=== PATIENT | female | born 1990 | race Caucasian/White ===

== ENCOUNTER → 2021-09-07 | Outpatient (REF) | payer BC ==
[~2021-09-07] MED LIST: AMBI10TA; AMBIEN; BUSP10TA PO; COLA50CA3 PO; CONC18TA; FEMCON PO; IBUP80TA PO; MACROBID PO; MAPA500T17 PO; MOM30SS PO; PRENTAB74 PO; PROP80CA; SERO1TAB3; SEROQUEL; TOPI25TA2; VENL1TAB35
[2021-09-08 14:02] LABS: PERCENT SATURATION 3.5 % (13.2-45.0)
== END ==
LOC: M LAB REF 12:27
PROVIDERS: ATTEND Internal Medicine
DX: D50.9 Iron deficiency anemia, unspecified (principal)

== ENCOUNTER 2021-09-10 23:55 | Emergency (ER) | payer BC ==
[~2021-09-10] VITALS: Ht 165.1 cm; Wt 103.6 kg
[2021-09-10 23:56] VITALS: BP 131/79
== END 2021-09-11 03:08 | disposition left against medical advice (07) ==
LOC: M ED 23:55
DX: Z53.21 Procedure and treatment not carried out due to patient leaving prior to being seen by health care provider (principal)

== ENCOUNTER → 2021-09-10 | Outpatient (REF) | payer BC | LOC: M LAB REF 12:35 | PROVIDERS: ATTEND Internal Medicine | DX: R10.9 Unspecified abdominal pain (principal); D50.9 Iron deficiency anemia, unspecified ==

== ENCOUNTER → 2021-10-04 | Outpatient (CLI) | payer BC ==
[~2021-10-04] MED LIST changes: +E-Z-GAS II EFFERVESCENT PACKET (SODIUM BICARB./CITRIC ACID/SIMETHICONE) As Ordered ONE; +E-Z-HD 98% w/w 340GM SUSP BTL As Ordered ONE; +E-Z-PAQUE 96% w/w SUSP 176GM BTL As Ordered ONE
== END ==
LOC: M RAD 08:26
PROVIDERS: ATTEND Internal Medicine
DX: R10.13 Epigastric pain (principal); Z98.84 Bariatric surgery status

== ENCOUNTER 2022-02-27 10:59 | Emergency (ER) | payer BC ==
[~2022-02-27] VITALS: Ht 162.6 cm; Wt 92.8 kg
[~2022-02-27 10:59] MED LIST changes: -E-Z-GAS II EFFERVESCENT PACKET (SODIUM BICARB./CITRIC ACID/SIMETHICONE) As Ordered ONE; -E-Z-HD 98% w/w 340GM SUSP BTL As Ordered ONE; -E-Z-PAQUE 96% w/w SUSP 176GM BTL As Ordered ONE
[2022-02-27 11:00] VITALS: BP 143/92
[2022-02-27] MEDS ORDERED: GUAN1TAB49 PO (11:24)
[2022-02-27] MEDS ORDERED: QUET100T2 PO (11:24)
[2022-02-27] MEDS ORDERED: VENL75CA47 PO (11:24)
[2022-02-27] MEDS ORDERED: BRIN10TA4 PO (11:24)
[2022-02-27] MEDS ORDERED: MYRB25TA PO (11:24)
== END 2022-02-27 14:10 | disposition home or self-care (01) ==
LOC: M ED 10:59
DX: E04.1 Nontoxic single thyroid nodule (principal); Z80.8 Family history of malignant neoplasm of other organs or systems; Z98.84 Bariatric surgery status; Z79.899 Other long term (current) drug therapy

== ENCOUNTER → 2022-03-04 | Outpatient (REF) | payer BC ==
[~2022-03-04] MED LIST changes: +BRIN10TA4 PO; +GUAN1TAB49 PO; +MYRB25TA PO; +QUET100T2 PO; +VENL75CA47 PO
[2022-03-04 17:32] LABS: BASO % 0.8 % (0.0-1.0); EOS # 0.1 10^3/uL (0.0-0.5); EOS % 2.5 % (0.0-3.0); HEMATOCRIT 32.2 % (36.0-47.0); HEMOGLOBIN 9.5 g/dl (12.0-15.5); LYMPH # 2.6 10^3/uL (1.5-5.0); LYMPH % 49.2 % (24.0-44.0); MEAN CORPUSCULAR HEMOGLOBIN 23.1 pg (27.0-33.0); MEAN CORPUSCULAR HGB CONC 29.5 g/dl (32.0-36.5); MEAN CORPUSCULAR VOLUME 78.3 fl (80.0-96.0); MONO # 0.3 10^3/uL (0.0-0.8); MONO % 6.3 % (2.0-8.0); NEUTROPHILS # 2.2 10^3/uL (1.5-8.5); PLATELET COUNT, AUTOMATED 213 10^3/uL (150-450); RED BLOOD COUNT 4.11 10^6/uL (4.00-5.40); WHITE BLOOD COUNT 5.2 10^3/uL (4.0-10.0)
[2022-03-04 18:03] LABS: FERRITIN 2.2 NG/ML (7.3-270.7); FOLATE 5.8 NG/ML (>5.4)
[2022-03-04 18:04] LABS: TOTAL 25(OH) VITAMIN D 28.2 NG/ML (20.0-100.0)
== END ==
LOC: M LAB REF 16:51
PROVIDERS: ATTEND Internal Medicine
DX: D50.9 Iron deficiency anemia, unspecified (principal); G60.9 Hereditary and idiopathic neuropathy, unspecified; Z98.84 Bariatric surgery status

== ENCOUNTER → 2022-03-08 | Outpatient (CLI) | payer BC ==
[~2022-03-08] MED LIST changes: +ISOVUE-370 76% 100ML VIAL As Ordered ONE
== END ==
LOC: M RAD 07:53
PROVIDERS: ATTEND Internal Medicine
DX: R59.0 Localized enlarged lymph nodes (principal); J34.1 Cyst and mucocele of nose and nasal sinus; J32.0 Chronic maxillary sinusitis

== ENCOUNTER → 2022-03-24 | Outpatient (CLI) | payer BC ==
[~2022-03-24] MED LIST changes: +ACET1TAB55; +BRIN1TAB3; +DOCU100C16; +FERR324T21; +GABA-282; +INTU1TAB PO; -ISOVUE-370 76% 100ML VIAL As Ordered ONE; +OMEP40CA5; +OXYC-517
== END ==
LOC: M LABSMTC 11:46
PROVIDERS: ATTEND Anesthesiology
DX: Z01.812 Encounter for preprocedural laboratory examination (principal); Z20.822 Contact with and (suspected) exposure to COVID-19

== ENCOUNTER 2022-03-29 08:34 | Day surgery (SDC) | payer BC ==
[~2022-03-29] VITALS: Ht 162.6 cm; Wt 92.4 kg
[~2022-03-29 08:34] MED LIST changes: +NS 1,000 ML IV ONE
[2022-03-29] MEDS ORDERED: LIDOCAINE 2% 100MG/5ML SDV (FOR ANES.) As Ordered ONE (10:19)
[2022-03-29] MEDS ORDERED: propofoL 200 MG/20 ML VIAL As Ordered ONE ×2 (10:19→10:56)
[2022-03-29] MEDS ORDERED: ePHEDrine SULFATE 25 MG/5 ML(5MG/ML) SYRINGE As Ordered ONE (10:57)
[2022-03-29 11:30] VITALS: BP 116/60
== END 2022-03-29 11:45 | disposition home or self-care (01) ==
LOC: M OPP 08:34
PROVIDERS: ATTEND Internal Medicine Gastroenterology
DX: D50.9 Iron deficiency anemia, unspecified (principal); D12.6 Benign neoplasm of colon, unspecified; Q43.8 Other specified congenital malformations of intestine; K64.8 Other hemorrhoids; K31.6 Fistula of stomach and duodenum; Z98.0 Intestinal bypass and anastomosis status; F41.9 Anxiety disorder, unspecified; F32.A Depression, unspecified; F17.210 Nicotine dependence, cigarettes, uncomplicated; Z91.09 Other allergy status, other than to drugs and biological substances; Z79.899 Other long term (current) drug therapy

== ENCOUNTER → 2022-04-07 | Outpatient (CLI) | payer BC ==
[~2022-04-07] VITALS: Ht 162.6 cm; Wt 92.0 kg
[~2022-04-07] MED LIST changes: +IRON SUCROSE 25 MG in NS 23.75 ML IV ONE; +IRON SUCROSE 475 MG in NS 250 ML IV ONE; -NS 1,000 ML IV ONE
[2022-04-07 08:28] VITALS: BP 129/58
[2022-04-07 10:00] VITALS: BP 122/56
[2022-04-07 11:00] VITALS: BP 133/66
[2022-04-07 12:00] VITALS: BP 125/76
[2022-04-07 13:20] VITALS: BP 116/56
== END ==
LOC: M INFU 08:13
PROVIDERS: ATTEND Internal Medicine
DX: D50.9 Iron deficiency anemia, unspecified (principal); Z91.048 Other nonmedicinal substance allergy status
CPT/HCPCS: 96365; 96366; J1756

== ENCOUNTER → 2022-04-21 | Outpatient (REF) | payer BC ==
[~2022-04-21] MED LIST changes: -IRON SUCROSE 25 MG in NS 23.75 ML IV ONE; -IRON SUCROSE 475 MG in NS 250 ML IV ONE
[2022-04-21 14:18] LABS: FERRITIN 25.1 NG/ML (7.3-270.7)
[2022-04-21 14:30] LABS: PERCENT SATURATION 12.6 % (13.2-45.0)
== END ==
LOC: M LAB REF 12:12
PROVIDERS: ATTEND Internal Medicine
DX: D50.9 Iron deficiency anemia, unspecified (principal)

== ENCOUNTER → 2022-08-31 | Outpatient (REF) | payer BC | LOC: M LAB REF 11:35 | PROVIDERS: ATTEND Internal Medicine | DX: R30.0 Dysuria (principal) ==

== ENCOUNTER → 2022-10-28 | Outpatient (REF) | payer BC ==
[2022-10-28 17:25] LABS: TOTAL IRON BINDING CAPACITY 425 UG/DL (250-425)
[2022-10-28 17:27] LABS: FERRITIN 4.4 NG/ML (7.3-270.7)
[2022-10-28 17:42] LABS: IRON (FE) < 5 UG/DL (50-170); PERCENT SATURATION 1.2 % (13.2-45.0)
== END ==
LOC: M LAB REF 16:11
PROVIDERS: ATTEND Internal Medicine
DX: D50.9 Iron deficiency anemia, unspecified (principal)

== ENCOUNTER → 2023-05-16 | Outpatient (REF) | payer BC ==
[2023-05-16 14:36] LABS: PERCENT SATURATION 3.3 % (13.2-45.0)
[2023-05-16 14:39] LABS: FERRITIN 2.2 NG/ML (7.3-270.7)
== END ==
LOC: M LAB REF 12:31
PROVIDERS: ATTEND Internal Medicine
DX: D50.9 Iron deficiency anemia, unspecified (principal)

== ENCOUNTER 2023-05-31 11:40 | Outpatient (CLI) | payer BC ==
[~2023-05-31] VITALS: Ht 162.6 cm; Wt 104.5 kg
[~2023-05-31 11:40] MED LIST changes: +ALBUTEROL SULFATE 2.5MG/0.5ML INH NEB SOLN INH PRN; +EPINEPHrine INJ 1 MG/ML 1ML AMP IM PRN; +diphenhydrAMINE 50MG/ML VIAL IV PRN; +methylPREDNISolone 125MG 2ML VIAL IV PRN
[2023-05-31 11:55] VITALS: BP 131/69; O2SAT 100
[2023-05-31] MEDS ORDERED: NS 1,000 ML IV SCH (12:00)
[2023-05-31] MEDS: FERRIC CARBOXYMALTOSE INJ 750 MG in NS 250 ML (>50kg) IV ONE (12:22)
[2023-05-31 13:33] VITALS: BP 125/68; O2SAT 99
== END 2023-05-31 13:40 | disposition home or self-care (01) ==
LOC: M INFU 11:40
PROVIDERS: ATTEND Internal Medicine
DX: D50.9 Iron deficiency anemia, unspecified (principal); Z91.048 Other nonmedicinal substance allergy status
CPT/HCPCS: 96365; J1439

== ENCOUNTER 2023-06-15 16:05 | Outpatient (CLI) | payer BC ==
[~2023-06-15] VITALS: Ht 162.6 cm; Wt 95.4 kg
[2023-06-15 16:05] VITALS: BP 122/61; O2SAT 100
[~2023-06-15 16:05] MED LIST changes: +NS 1,000 ML IV SCH
[2023-06-15] MEDS: FERRIC CARBOXYMALTOSE INJ 750 MG in NS 250 ML (>50kg) IV ONE (16:21)
[2023-06-15 17:49] VITALS: BP 114/61; O2SAT 98
== END 2023-06-15 17:49 | disposition home or self-care (01) ==
LOC: M INFU 16:05
PROVIDERS: ATTEND Internal Medicine
DX: D50.9 Iron deficiency anemia, unspecified (principal); Z91.048 Other nonmedicinal substance allergy status
CPT/HCPCS: 96365; J1439

== ENCOUNTER → 2023-08-23 | Outpatient (REF) | payer BC ==
[~2023-08-23] MED LIST changes: -ALBUTEROL SULFATE 2.5MG/0.5ML INH NEB SOLN INH PRN; -EPINEPHrine INJ 1 MG/ML 1ML AMP IM PRN; -NS 1,000 ML IV SCH; -diphenhydrAMINE 50MG/ML VIAL IV PRN; -methylPREDNISolone 125MG 2ML VIAL IV PRN
[2023-08-23 14:05] LABS: FERRITIN 18.9 NG/ML (7.3-270.7)
[2023-08-23 14:09] LABS: PERCENT SATURATION 10.9 % (13.2-45.0)
== END ==
LOC: M LAB REF 11:27
PROVIDERS: ATTEND Internal Medicine
DX: D50.9 Iron deficiency anemia, unspecified (principal)

== ENCOUNTER → 2023-11-13 | Outpatient (REF) | payer BC ==
[~2023-11-13] MED LIST changes: +MECL-209 PO; +ROSU5TAB40
[2023-11-13 18:04] LABS: PERCENT SATURATION 7.7 % (13.2-45.0)
[2023-11-13 18:06] LABS: FERRITIN 9.3 NG/ML (7.3-270.7)
== END ==
LOC: M LAB REF 16:31
PROVIDERS: ATTEND Internal Medicine
DX: D50.9 Iron deficiency anemia, unspecified (principal)

== ENCOUNTER 2023-11-14 12:40 | Emergency (ER) | payer BC ==
[~2023-11-14] VITALS: Ht 162.6 cm; Wt 105.4 kg
[~2023-11-14 12:40] MED LIST changes: -MECL-209 PO; -ROSU5TAB40
[2023-11-14] MEDS ORDERED: ROSU5TAB40 (12:52)
[2023-11-14 13:37] LABS: BASO % 0.4 % (0.0-1.0); EOS # 0.1 10^3/uL (0.0-0.5); HEMOGLOBIN 14.2 g/dl (12.0-15.5); LYMPH # 2.5 10^3/uL (1.5-5.0); LYMPH % 35.5 % (24.0-44.0); MEAN CORPUSCULAR HEMOGLOBIN 30.7 pg (27.0-33.0); MEAN CORPUSCULAR VOLUME 92.9 fl (80.0-96.0); MONO # 0.4 10^3/uL (0.0-0.8); MONO % 6.4 % (2.0-8.0); NEUTROPHILS # 3.9 10^3/uL (1.5-8.5); NEUTROPHILS % 56.4 % (36.0-66.0); PLATELET COUNT, AUTOMATED 209 10^3/uL (150-450); RED BLOOD COUNT 4.63 10^6/uL (4.00-5.40); WHITE BLOOD COUNT 6.9 10^3/uL (4.0-10.0)
[2023-11-14 13:58] LABS: BLOOD UREA NITROGEN 10 MG/DL (9-23); CALCIUM LEVEL 9.1 MG/DL (8.5-10.1); CARBON DIOXIDE LEVEL 28 MMOL/L (20-31); CHLORIDE LEVEL 107 MMOL/L (98-107); CK-MB VALUE MASS < 1.0 NG/ML (<3.6); CREATININE FOR GFR 0.54 MG/DL (0.55-1.30); GLOMERULAR FILTRATION RATE > 60.0 (>60); GLUCOSE, FASTING 87 MG/DL (60-100); POTASSIUM SERUM 4.8 MMOL/L (3.5-5.1); SODIUM LEVEL 139 MMOL/L (136-145)
[2023-11-14 14:00] LABS: CPK CREATINE PHOSPHOKINASE 77 U/L (34-145); MB/CK RELATIVE INDEX 1.29 (< OR =4)
[2023-11-14 15:29] VITALS: TEMP 97.6
[2023-11-14 17:06] LABS: CK-MB VALUE MASS < 1.0 NG/ML (<3.6); CPK CREATINE PHOSPHOKINASE 87 U/L (34-145); MB/CK RELATIVE INDEX 1.14 (< OR =4)
[2023-11-14 17:18] LABS: VITAMIN B12 LEVEL 559 PG/ML (211-911)
[2023-11-14] MEDS: MECLIZINE 25 MG TABLET PO ONE (17:43)
[2023-11-14] MEDS: NS 1,000 ML IV ONE (17:43)
[2023-11-14] MEDS: METOCLOPRAMIDE INJ 10MG/2ML VIAL IV ONE (17:43)
[2023-11-14 20:30] VITALS: BP 121/67; O2SAT 98
[2023-11-14] MEDS ORDERED: MECL-209 PO (20:40)
== END 2023-11-14 20:58 | disposition home or self-care (01) ==
LOC: M ED 12:40
DX: R07.9 Chest pain, unspecified (principal); R55 Syncope and collapse; R42 Dizziness and giddiness; F17.200 Nicotine dependence, unspecified, uncomplicated; F12.10 Cannabis abuse, uncomplicated; Z98.84 Bariatric surgery status; Z86.718 Personal history of other venous thrombosis and embolism; Z87.820 Personal history of traumatic brain injury; Z79.899 Other long term (current) drug therapy
CPT/HCPCS: 70450; 70544; 70547; 70551; 71045; 80048; 82550; 82553; 82607; 83735; 84484; 85025; 85379; 93005; 93041; 94760; 96361; 96374; 99285; J2765

== ENCOUNTER → 2023-12-07 | Outpatient (CLI) | payer BC ==
[~2023-12-07] MED LIST changes: +ALBUTEROL SULFATE 2.5MG/0.5ML INH NEB SOLN INH PRN; +EPINEPHrine INJ 1 MG/ML 1ML AMP IM PRN; +MECL-209 PO; +NS 1,000 ML IV SCH; +ROSU5TAB40; +diphenhydrAMINE 50MG/ML VIAL IV PRN; +methylPREDNISolone 125MG 2ML VIAL IV PRN
[2023-12-07 11:50] VITALS: BP 114/56; O2SAT 100
[2023-12-07] MEDS: FERRIC CARBOXYMALTOSE INJ 750 MG in NS 250 ML (>50kg) IV ONE (12:15)
[2023-12-07 13:27] VITALS: BP 140/93; O2SAT 100
== END ==
LOC: M INFU 11:08
PROVIDERS: ATTEND Internal Medicine
DX: D50.9 Iron deficiency anemia, unspecified (principal)
CPT/HCPCS: 96365; J1439

== ENCOUNTER 2023-12-19 15:38 | Outpatient (CLI) | payer BC ==
[~2023-12-19] VITALS: Ht 162.6 cm; Wt 104.5 kg
[~2023-12-19 15:38] MED LIST changes: +GABA-1172; -GABA-282; -NS 1,000 ML IV SCH
[2023-12-19 15:45] VITALS: BP 123/75; O2SAT 100
[2023-12-19] MEDS: FERRIC CARBOXYMALTOSE INJ 750 MG in NS 250 ML (>50kg) IV ONE (15:57)
[2023-12-19] MEDS ORDERED: NS 1,000 ML IV SCH (16:00)
[2023-12-19 17:20] VITALS: BP 166/89; O2SAT 100
== END 2023-12-19 17:20 ==
LOC: M INFU 15:38
PROVIDERS: ATTEND Internal Medicine
DX: D50.9 Iron deficiency anemia, unspecified (principal); Z91.048 Other nonmedicinal substance allergy status
CPT/HCPCS: 96365; J1439

== ENCOUNTER → 2024-04-05 | Outpatient (REF) | payer BC ==
[~2024-04-05] MED LIST changes: -ALBUTEROL SULFATE 2.5MG/0.5ML INH NEB SOLN INH PRN; -EPINEPHrine INJ 1 MG/ML 1ML AMP IM PRN; -ROSU5TAB40; +ROSU5TAB49; -diphenhydrAMINE 50MG/ML VIAL IV PRN; -methylPREDNISolone 125MG 2ML VIAL IV PRN
[2024-04-05 18:43] LABS: PERCENT SATURATION 16.4 % (13.2-45.0)
[2024-04-05 18:47] LABS: FERRITIN 67.8 NG/ML (7.3-270.7)
== END ==
LOC: M LAB REF 16:17
PROVIDERS: ATTEND Internal Medicine
DX: D50.9 Iron deficiency anemia, unspecified (principal)

== ENCOUNTER → 2025-01-09 | Outpatient (REF) | payer BC ==
[2025-01-09 13:37] LABS: IRON (FE) 22.0 UG/DL (50-170); PERCENT SATURATION 5.6 % (13.2-45.0)
== END ==
LOC: M LAB REF 12:33
PROVIDERS: ATTEND Internal Medicine
DX: D50.9 Iron deficiency anemia, unspecified (principal); Z86.79 Personal history of other diseases of the circulatory system; Z82.49 Family history of ischemic heart disease and other diseases of the circulatory system

== ENCOUNTER 2025-01-28 11:00 | Outpatient (CLI) | payer BC ==
[~2025-01-28] VITALS: Ht 162.6 cm; Wt 101.3 kg
[~2025-01-28 11:00] MED LIST changes: +ALBUTEROL SULFATE 2.5 MG/0.5 ML INH CONCENTRATE NEB SOLN INH PRN; +EPINEPHrine INJ 1 MG/ML 1ML AMP IM PRN; +diphenhydrAMINE 50 MG/ML VIAL IV PRN
[2025-01-28 11:11] VITALS: BP 116/69; O2SAT 98
[2025-01-28] MEDS: FERRIC CARBOXYMALTOSE 750 MG (VIAL MATE) IN 100ML NS IV ONE (11:32)
[2025-01-28 12:05] VITALS: BP 110/55; O2SAT 100
== END 2025-01-28 12:05 | disposition home or self-care (01) ==
LOC: M INFU 11:00
PROVIDERS: ATTEND Internal Medicine
DX: D50.9 Iron deficiency anemia, unspecified (principal); Z91.09 Other allergy status, other than to drugs and biological substances
CPT/HCPCS: 96365; J1439

== ENCOUNTER 2025-02-04 10:53 | Outpatient (CLI) | payer BC ==
[2025-02-04 11:00] VITALS: BP 121/69; O2SAT 100
[2025-02-04] MEDS: FERRIC CARBOXYMALTOSE 750 MG (VIAL MATE) IN 100ML NS IV ONE (11:17)
[2025-02-04 11:53] VITALS: BP 116/57; O2SAT 100
== END 2025-02-04 11:53 | disposition home or self-care (01) ==
LOC: M INFU 10:53
PROVIDERS: ATTEND Internal Medicine
DX: D50.9 Iron deficiency anemia, unspecified (principal); Z91.048 Other nonmedicinal substance allergy status
CPT/HCPCS: 96365; J1439